=== PATIENT | female | born 1990 | race Caucasian/White ===

== ENCOUNTER 2021-07-26 05:48 | Emergency (ER) | payer MEDICAID ==
[2021-07-26] MEDS ORDERED: KETOROLAC 30 MG/ML VIAL IM STA (06:32)
[2021-07-26] MEDS ORDERED: ORPHENADRINE 60 MG/2 ML (NORFLEX) AMP (ED ONLY) IM STA (06:32)
--- NOTE | 2021-07-26 06:36 | ED Abdominal Pain ---
General Chief Complaint: Abdominal/GI Problems Stated Complaint: LEFT SIDE & VAG CRAMPING,SPOTTING Nursing Triage Note: TO ED VIA POV AND AMBULATORY TO ROOM 6 WITH C/O LEFT LOWER PELVIC PAIN THAT RADIATES TO BACK THAT STARTED APPROX 0300 THIS MORNING. STATES, "DOESN'T FEEL LIKE A UTI". PT STATES, "IT FEELS LIKE MENSTRUAL CRAMPING WHEN I URINATE". 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 Source of Information: Patient Exam Limitations: No Limitations History of Present Illness Date Seen by Provider: July 26, 2021 Time Seen by Provider: 06:25 Initial Comments Patient is a 31-year-old female who presents to the emergency department today with a chief complaint of left lower quadrant abdominal cramping, headache and neck pain. Patient symptoms started last evening. She took some Excedrin Migraine and rizatriptan for her headache without relief of symptoms. No associated fevers, chills, earache. She feels like her throat is a little sore but it does not hurt to swallow. History of significant seasonal allergies. She states that she had "brown" vaginal discharge around 3:00 in the morning that concerned her. She has not had a menstrual cycle since mid May. She has a history of PCOS. Had normal menses from December to May after stopping oral control pills. Previous cholecystectomy and section. Last bowel movement was early this morning. Nonblack nonbloody. She is not nauseous. All other review of systems reviewed and negative except as stated. Timing/Duration: 12-24 Hours Severity/Quality: Moderate, Cramping Location: Q Activities at Onset: Sleeping Associated Symptoms: Back Pain (left flank), Headache Allergies and Home Medications Allergies Coded Allergies: Penicillins (Verified Allergy, Unknown, 07/26/21) Patient Home Medication List Home Medication List Reviewed: Yes Review of Systems Review of Systems Constitutional: see HPI EENTM: No Symptoms Reported Respiratory: No Symptoms Reported Cardiovascular: No Symptoms Reported Gastrointestinal: Abdominal Pain Genitourinary: Discharge ("brown") Musculoskeletal: neck pain Skin: no symptoms reported Psychiatric/Neurological: Headache All Other Systems Reviewed Negative Unless Noted: Yes Past Arrtyzk-Nazfca-Eumuor Hx Patient Social History Tobacco Use?: Yes Tobacco type used: Cigarettes Smoking Status: Current Everyday Smoker Substance use?: No Alcohol Use?: No Immunizations Up To Date Influenza Vaccine Up-to-Date: No; Not Current Past Medical History Last Menstrual Period: Jun 10, 2021 Physical Exam Vital Signs Vital Signs - First Documented 07/26/21 06:13 Temp 36.9 Pulse 117 Resp 16 B/P (MAP) 125/84 (98) Pulse Ox 100 O2 Delivery Room Air Capillary Refill : Less Than 3 Seconds Height/Weight/BMI Height: '" Weight: lbs. oz. kg; BMI Method: General Appearance: WD/WN, no apparent distress HEENT: PERRL/EOMI, TMs normal, pharynx normal Neck: non-tender, full range of motion, supple, normal inspection Respiratory: lungs clear, normal breath sounds, no respiratory distress, no accessory muscle use Cardiovascular: regular rate, rhythm Gastrointestinal: normal bowel sounds, non tender, soft Extremities: normal range of motion, normal inspection Neurologic/Psychiatric: no motor/sensory deficits, alert, normal mood/affect, oriented x 3 Skin: normal color, warm/dry Progress/Results/Core Measures Results/Orders Lab Results Laboratory Tests Test 07/26/21 06:20 07/26/21 06:46 Range/Units Urine Color YELLOW Urine Clarity CLEAR Urine pH 5.5 5-9 Urine Specific [place] 1.010 L 1.016-1.022 Urine Protein NEGATIVE NEGATIVE Urine Glucose (UA) NEGATIVE NEGATIVE Urine Ketones NEGATIVE NEGATIVE Urine Nitrite NEGATIVE NEGATIVE Urine Bilirubin NEGATIVE NEGATIVE Urine Urobilinogen 0.2 < = 1.0 MG/DL Urine Leukocyte Esterase NEGATIVE NEGATIVE Urine RBC (Auto) 2+ H NEGATIVE Urine RBC RARE /HPF Urine WBC 0-2 /HPF Urine Squamous Epithelial Cells 2-5 /HPF Urine Crystals NONE /LPF Urine Bacteria TRACE /HPF Urine Casts NONE /LPF Urine Mucus NEGATIVE /LPF Urine Culture Indicated NO Serum Test, Qualitative NEGATIVE NEGATIVE My Orders Orders - BETINA SOTO MD Hcg,Qualitative Serum (07/26/21 06:32) Ua Culture If Indicated (07/26/21 06:32) Urine Bedside (07/26/21 06:32) Ketorolac Injection (Toradol Injection) (07/26/21 06:32) Orphenadrine Inj (Ed Only) (Norflex Inje (07/26/21 06:32) Vital Signs/I&O 07/26/21 06:13 Temp 36.9 Pulse 117 Resp 16 B/P (MAP) 125/84 (98) Pulse Ox 100 O2 Delivery Room Air Blood Pressure Mean: 98 Progress Progress Note : Time: 07:07 Progress Note Patient is feeling much better after medications. Urinalysis shows trace blood, likely due to onset of menstruation. Her serum test is negative. We talked about return precautions, cannot rule out a kidney stone with the work-up done today so if she has worsening pain, nausea vomiting she needs to come back to the emergency room. She is comfortable with this plan of care. All questions are sought and answered. Patient is stable for discharge Departure Impression Primary Impression: Headache Qualified Codes: G44.209 - Tension-type headache, unspecified, not intractable Additional Impression: Abdominal pain Qualified Codes: R10.32 - Left lower quadrant pain Disposition: 01 HOME, SELF-CARE Condition: Improved Departure-Patient Inst. Decision time for Depature: 07:08 Referrals: NO,LOCAL PHYSICIAN (PCP/Family) Primary Care Physician Patient Instructions: Abdominal Pain, Adult ED Add. Discharge Instructions: Drink plenty of fluids to stay well-hydrated. You can take jzuy-jrh-bonccjd ibuprofen 3 tablets which is 600 mg every 6 hours with food as needed for pain. If you have worsening abdominal pain especially with nausea, vomiting or fever please return to the emergency department for reevaluation. Please follow-up with your primary care physician. BETINA SOTO MD July 26, 2021 06:36
[2021-07-26 06:37] LABS: BILIRUBIN,URINE NEGATIVE (NEGATIVE); CLARITY,URINE CLEAR; COLOR,URINE YELLOW; GLUCOSE, URINE (UA) NEGATIVE (NEGATIVE); KETONES,URINE NEGATIVE (NEGATIVE); LEUKOCYTE ESTERASE ,URINE NEGATIVE (NEGATIVE); NITRITE,URINE NEGATIVE (NEGATIVE); PH,URINE 5.5 (5-9); PROTEIN,URINE NEGATIVE (NEGATIVE)
[2021-07-26 06:58] LABS: BACTERIA,URINE TRACE /HPF; RBC,URINE RARE /HPF; WBC,URINE 0-2 /HPF
[2021-07-26 07:29] VITALS: BP 120/81
== END 2021-07-26 07:29 | disposition home or self-care (01) ==
LOC: ER 05:54
DX: R10.32 Left lower quadrant pain (principal); G44.209 Tension-type headache, unspecified, not intractable; F17.210 Nicotine dependence, cigarettes, uncomplicated; Z87.42 Personal history of other diseases of the female genital tract; Z90.49 Acquired absence of other specified parts of digestive tract; Z79.899 Other long term (current) drug therapy; Z32.02 Encounter for pregnancy test, result negative
CPT/HCPCS: 36415; 81000; 84703

== ENCOUNTER 2021-12-22 03:08 | Emergency (ER) | payer MEDICAID ==
[~2021-12-22] VITALS: Ht 152.4 cm; Wt 79.0 kg
--- NOTE | 2021-12-22 03:42 | ED EENT ---
History of Present Illness General Stated Complaint: BOTH EARS PX,DIZZY,DIFFICULTY SWALLOWING Source: patient Exam Limitations: no limitations History of Present Illness Date Seen by Provider: Dec 22, 2021 Time Seen by Provider: 03:20 Initial Comments Patient to the ER by private conveyance chief complaint that for the past 5 days she has been experiencing some pain in her right jaw and her right ear. She says this morning getting worse. She went to the dentist yesterday and was described as having no infection in her teeth or gums. She said the pain got worse tonight woke her up. She says it felt like something was sloshing around in her head and it made her dizzy whenever she would stand up or turn her head. She also felt like something was biting her in her eardrum causing sharp intense pain. She has not taken anything for pain yet. She not having any nausea or vomiting fevers or chills. Allergy to penicillin based off of allergy testing. Allergies and Home Medications Allergies Coded Allergies: Penicillins (Verified Allergy, Unknown, 07/26/21) Patient Home Medication List Home Medication List Reviewed: Yes Cefdinir (Cefdinir) 300 Mg Capsule, 300 MG PO BID Prescribed by: PATRIC PALACIO on 12/22/21 0344 Review of Systems Review of Systems Constitutional: No chills, No fever Eyes: Denies Blindness, Denies Drainage Ears: See HPI; Denies Dizziness; Pain Nose: denies clots, denies pain Mouth: denies clots, denies swelling, denies bloody discharge Respiratory: No cough, No short of breath Gastrointestinal: No nausea, No vomiting All Other Systems Reviewed Negative Unless Noted: Yes Past Sbbmpdu-Dveget-Oetiri Hx Patient Social History Tobacco Use?: No Use of E-Cig and/or Vaping dev: No Physical Exam Vital Signs Vital Signs - First Documented 12/22/21 03:27 Temp 35.5 Pulse 102 Resp 20 B/P (MAP) 119/88 (98) Pulse Ox 100 O2 Delivery Room Air Height, Weight, BMI Height: '" Weight: lbs. oz. kg; BMI Method: General Appearance: WD/WN, no apparent distress Eyes: bilateral eye normal inspection, bilateral eye PERRL, bilateral eye EOMI Ears: right ear TM dull, right ear TM red; left ear TM normal; bilateral ear auricle normal, bilateral ear canal normal Nose: normal inspection; No active bleeding Mouth/Throat: normal mouth inspection, pharynx normal Cardiovascular: normal peripheral pulses, regular rate, rhythm Respiratory: no respiratory distress, no accessory muscle use Progress/Results/Core Measures Results/Orders My Orders Orders - PATRIC PALACIO Cefdinir Capsule (Omnicef Capsule) (12/22/21 03:45) Medications Given in ED Current Medications Medications Dose Ordered Sig/Clara Route Start Time Stop Time Status Last Admin Dose Admin Cefdinir 300 mg ONCE ONCE PO 12/22/21 03:45 12/22/21 03:46 DC 12/22/21 04:01 300 MG Vital Signs/I&O 12/22/21 12/22/21 03:27 04:01 Temp 35.5 35.5 Pulse 102 102 Resp 20 20 B/P (MAP) 119/88 (98) 119/88 Pulse Ox 100 100 O2 Delivery Room Air Room Air Progress Progress Note : Time: 03:38 Progress Note First dose of cefdinir and give her prescription for Antivert. Put her on fluticasone and cefdinir outpatient with return precautions. Patient is okay with this plan. She will get some gqzv-qbw-fhgcebg pain medicine when she gets home. Departure Impression Primary Impression: Otitis media of right ear Qualified Codes: H65.191 - Other acute nonsuppurative otitis media, right ear Disposition: HOME, SELF-CARE Condition: Stable Departure-Patient Inst. Decision time for Depature: 03:39 Referrals: NO,LOCAL PHYSICIAN (PCP/Family) Primary Care Physician Patient Instructions: Ear Infections (Otitis Media) in Adults (DC) Add. Discharge Instructions: Cefdinir twice a day with food. Yogurt with active culture or probiotics twice a day to prevent diarrhea from antibiotics. Drink lots of fluids. Tylenol 1000 mg every 8 hours needed for pain. Ibuprofen 800 mg every 8 hours needed for pain. Scripts Cefdinir (Cefdinir) 300 Mg Capsule 300 MG PO BID for 10 Days, #20 CAP 0 Refills Prov: PATRIC PALACIO 12/22/21 Work/School Note: Work Release Form Date Seen in the Emergency Department: Dec 22, 2021 Return to Work: Dec 24, 2021 Restrictions: No Restrictions PATRIC PALACIO Dec 22, 2021 03:42
[2021-12-22] MEDS ORDERED: CEFD300C3 PO (03:44)
[2021-12-22] MEDS ORDERED: CEFDINIR 300 MG (OMNICEF) CAP PO ONE (03:45)
[2021-12-22 04:01] VITALS: BP 119/88
[2021-12-22] MEDS ORDERED: IBUPROFEN 800 MG (MOTRIN) TAB PO ONE ×2 (04:06→04:15)
== END 2021-12-22 04:02 | disposition home or self-care (01) ==
LOC: EDUNIT# 03:08 → ER 03:12
DX: H66.91 Otitis media, unspecified, right ear (principal)
CPT/HCPCS: 99283

== ENCOUNTER 2022-01-31 14:50 | Emergency (ER) | payer MEDICAID ==
[~2022-01-31] VITALS: Ht 152.4 cm; Wt 79.5 kg
[~2022-01-31 14:50] MED LIST: CEFD300C3 PO
[2022-01-31] MEDS ORDERED: ONDANSETRON 4 MG/2 ML (SDV) Z0FRAN IVP ONE (15:30)
[2022-01-31] MEDS ORDERED: LACTATED RINGERS 1,000 ML IV ONE (15:30)
[2022-01-31] MEDS ORDERED: fentaNYL INJ 100 MCG/2 ML AMP IVP ONE (15:30)
[2022-01-31 15:37] LABS: BASOPHILS % (AUTO) 0 % (0-10); EOSINOPHILS % (AUTO) 0 % (0-10); HEMATOCRIT 43 % (35-52); HEMOGLOBIN 14.2 g/dL (11.5-16.0); LYMPHOCYTES # (AUTO) 3.8 10^3/uL (1.0-4.0); LYMPHOCYTES % (AUTO) 30 % (12-44); MEAN CORPUSCULAR HEMOGLOBIN 29 pg (25-34); MEAN CORPUSCULAR HGB CONC 33 g/dL (32-36); MEAN CORPUSCULAR VOLUME 89 fL (80-99); MEAN PLATELET VOLUME 9.9 fL (9.0-12.2); MONOCYTES # (AUTO) 0.4 10^3/uL (0.0-1.0); MONOCYTES % (AUTO) 3 % (0-12); NEUTROPHILS # (AUTO) 8.6 10^3/uL (1.8-7.8); NEUTROPHILS % (AUTO) 67 % (42-75); PLATELET COUNT 297 10^3/uL (130-400)
[2022-01-31 15:45] LABS: ALBUMIN 4.2 GM/DL (3.2-4.5)
[2022-01-31 15:47] LABS: CALCIUM 9.8 MG/DL (8.5-10.1)
[2022-01-31 15:50] LABS: BILIRUBIN,TOTAL 0.5 MG/DL (0.1-1.0)
[2022-01-31 15:52] LABS: CREATININE SERUM 0.76 MG/DL (0.60-1.30)
[2022-01-31 15:55] LABS: ERYTHROCYTE SEDIMENTATION RATE 9 MM/HR (0-20); MAGNESIUM 1.9 MG/DL (1.6-2.4)
[2022-01-31 16:15] LABS: TSH (THYROID ANALYZER) 2.56 UIU/ML (0.35-4.94)
--- NOTE | 2022-01-31 16:32 | Diagnostic Imaging Report ---
INDICATION: Severe headache, recent lumbar puncture. TECHNIQUE: Multiple contiguous axial images were obtained through the brain without the use of intravenous contrast. Auto Exposure Controls were utilized during the CT exam to meet ALARA standards for radiation dose reduction. COMPARISON: There is no prior study for comparison. FINDINGS: There were no extra-axial fluid collections. No intracranial hemorrhage. No intracranial mass or mass effect. No midline shift. The ventricles are normal in size and position. There were no focal parenchymal abnormalities in the brain. Visualized portions of the orbits and sinuses appear unremarkable, except for a small retention cyst or polyp in the right maxillary sinus inferiorly. Mastoid air cells appear well aerated. IMPRESSION: No acute intracranial abnormality. Dictated by: Dictated on workstation # [id number]
[2022-01-31] MEDS ORDERED: KETOROLAC 30 MG/ML VIAL IVP ONE (16:45)
--- NOTE | 2022-01-31 16:45 | ED Headache ---
General Chief Complaint: Head/Cervical Problems Stated Complaint: HEADACHES | NUMBNESS AND PAIN Nursing Triage Note: pt states her dr sent her here to see make sure she isnt having a stroke. she states she has headache,fullness in head, tingling in right arm, pressure in right eye, feeling of her ears needing to pop. states that she had an LP yesterday at Source: patient Exam Limitations: no limitations (LOC NORWOOD MD) History of Present Illness Date Seen by Provider: Jan 31, 2022 Time Seen by Provider: 15:04 Initial Comments This 31-year-old woman presents to the emergency room with primary complaint of intense occipital headache. She has been undergoing neurologic work-up with Dr. Moore, neurologist at [facility] for a myriad of neurologic symptoms. Yesterday she underwent a trial of therapeutic LP. Opening pressure was reportedly 26 cmH2O. The cytology was unremarkable. Patient reports feeling significantly improved after the LP but approximately 1 hour prior to arrival developed neurologic symptoms again. Her primary symptom is occipital headache but she also complains of a hot and cold sensation down both legs, some mild tremors, a "underwater sound" in her background hearing, light sensitivity, sensation of racing heart and pressure in the chest, paresthesias in the arms, neck stiffne ss, and worsening of headache when in the upright position. Most of these symptoms are actually recurrent and not new today. The sensation of twitching and the "underwater sound" are new today. Patient reports speaking with Dr. Oscar Moore's nurse, who instructed her to come to the emergency room to rule out any more serious pathology. Patient took tizanidine, methylprednisolone, metformin, and gabapentin. She has not taken any other acute treatment medications. She states her vision has at times been blurred and she sometimes sees "dhaliwal". Of note, I later spoke with Dr. Moore who reports a myriad of neurologic symptoms is not new for the patient. Acute severity of symptoms and intense headache is likely secondary to spinal headache especially with it worsening in the upright position. (LOC NORWOOD MD) Initial Comments Agree with H & P (TERRI MONTOYA MD) Allergies and Home Medications Allergies Coded Allergies: Penicillins (Verified Allergy, Unknown, 07/26/21) Patient Home Medication List Home Medication List Reviewed: Yes (LOC NORWOOD MD) Home Medication List Reviewed: Yes (TERRI MONTOYA MD) Cefdinir (Cefdinir) 300 Mg Capsule, 300 MG PO BID Prescribed by: PATRIC PALACIO on 12/22/21 0344 Review of Systems Review of Systems Constitutional: no symptoms reported Eyes: See HPI Ears, Nose, Mouth, Throat: see HPI Respiratory: see HPI Cardiovascular: see HPI Gastrointestinal: see HPI, nausea Genitourinary: no symptoms reported : No Musculoskeletal: see HPI Skin: no symptoms reported Psychiatric/Neurological: See HPI (LOC NORWOOD MD) Past Oidcwkb-Pmmnpx-Thyyts Hx Patient Social History Tobacco Use?: Yes Tobacco type used: Cigarettes Substance use?: No Alcohol Use?: No (LOC NORWOOD MD) Seasonal Allergies Seasonal Allergies: Yes (LOC NORWOOD MD) Past Medical History Surgery/Hospitalization HX: ptsd, cervical migranes, cervical vertigo, anxiety, panic attacks x2, choley Surgeries: Yes (Leonardo teeth) Section, Gallbladder Respiratory: Yes COPD Cardiac: No Neurological: Yes Headaches /Migraines, Vertigo : No Reproductive Disorders: Yes Female Reproductive Disorders: Polycystic Ovarian Dis Genitourinary: No Gastrointestinal: No Musculoskeletal: No Endocrine: No HEENT: No Cancer: No Psychosocial: Yes Anxiety, PTSD, Bipolar (LOC NORWOOD MD) Physical Exam Vital Signs Vital Signs - First Documented 01/31/22 01/31/22 14:56 15:52 Temp 36.2 Pulse 91 Resp 18 B/P (MAP) 141/94 (110) Pulse Ox 99 O2 Delivery Room Air (TERRI MONTOYA MD) Vital Signs Capillary Refill : (LOC NORWOOD MD) Height, Weight, BMI Height: '" Weight: lbs. oz. kg; 34.00 BMI Method: General Appearance: WD/WN, mild distress HEENT: PERRL/EOMI, normal ENT inspection, TMs normal, pharynx normal Neck: normal inspection Cardiovascular: regular rate, rhythm, no edema, no murmur Respiratory: lungs clear, normal breath sounds, no respiratory distress Gastrointestinal: normal bowel sounds, non tender, soft Back: other (Mild bruising at the LP site) Extremities: non-tender, normal inspection, no pedal edema Psychiatric: alert, oriented x 3 Crainal Nerves: normal hearing, normal speech, PERRL Coordination/Gait: normal finger to nose Motor/Sensory: no motor deficit, no sensory deficit, no pronator drift, other (Sensation is intact bilaterally but patient says the sensation of touch is more intense on the right than the left.) Skin: normal color, warm/dry (LOC NORWOOD MD) Progress/Results/Core Measures Results/Orders Lab Results Laboratory Tests Test 01/31/22 15:30 Range/Units White Blood Count 13.0 H 4.3-11.0 10^3/uL Red Blood Count 4.89 3.80-5.11 10^6/uL Hemoglobin 14.2 11.5-16.0 g/dL Hematocrit 43 35-52 % Mean Corpuscular Volume 89 80-99 fL Mean Corpuscular Hemoglobin 29 25-34 pg Mean Corpuscular Hemoglobin Concent 33 32-36 g/dL Red Cell Distribution Width 13.8 10.0-14.5 % Platelet Count 297 130-400 10^3/uL Mean Platelet Volume 9.9 9.0-12.2 fL Immature Granulocyte % (Auto) 0 % Neutrophils (%) (Auto) 67 42-75 % Lymphocytes (%) (Auto) 30 12-44 % Monocytes (%) (Auto) 3 0-12 % Eosinophils (%) (Auto) 0 0-10 % Basophils (%) (Auto) 0 0-10 % Neutrophils # (Auto) 8.6 H 1.8-7.8 10^3/uL Lymphocytes # (Auto) 3.8 1.0-4.0 10^3/uL Monocytes # (Auto) 0.4 0.0-1.0 10^3/uL Eosinophils # (Auto) 0.0 0.0-0.3 10^3/uL Basophils # (Auto) 0.0 0.0-0.1 10^3/uL Immature Granulocyte # (Auto) 0.0 0.0-0.1 10^3/uL Erythrocyte Sedimentation Rate 9 0-20 MM/HR Sodium Level 138 135-145 MMOL/L Potassium Level 4.0 3.6-5.0 MMOL/L Chloride Level 103 98-107 MMOL/L Carbon Dioxide Level 27 21-32 MMOL/L Anion Gap 8 5-14 MMOL/L Blood Urea Nitrogen 10 7-18 MG/DL Creatinine 0.76 0.60-1.30 MG/DL Estimat Glomerular Filtration Rate 106 BUN/Creatinine Ratio 13 Glucose Level 89 70-105 MG/DL Calcium Level 9.8 8.5-10.1 MG/DL Corrected Calcium 9.6 8.5-10.1 MG/DL Magnesium Level 1.9 1.6-2.4 MG/DL Total Bilirubin 0.5 0.1-1.0 MG/DL Aspartate Amino Transf (AST/SGOT) 22 5-34 U/L Alanine Aminotransferase (ALT/SGPT) 51 0-55 U/L Alkaline Phosphatase 96 40-136 U/L C-Reactive Protein High Sensitivity 0.33 0.00-0.50 MG/DL Total Protein 7.0 6.4-8.2 GM/DL Albumin 4.2 3.2-4.5 GM/DL TSH Alba Testing 2.56 0.35-4.94 UIU/ML Serum Test, Qualitative NEGATIVE NEGATIVE (TERRI MONTOYA MD) Medications Given in ED Current Medications Medications Dose Ordered Sig/Clara Route Start Time Stop Time Status Last Admin Dose Admin Fentanyl Citrate 50 mcg ONCE ONCE IVP 01/31/22 15:30 01/31/22 15:31 DC 01/31/22 15:39 50 MCG Ketorolac Tromethamine 30 mg ONCE ONCE IVP 01/31/22 16:45 01/31/22 16:47 DC 01/31/22 16:50 30 MG Lactated Ringer's 1,000 ml @ 0 mls/hr Q0M ONCE IV 01/31/22 15:30 01/31/22 15:31 DC 01/31/22 15:36 0 MLS/HR Ondansetron HCl 8 mg ONCE ONCE IVP 01/31/22 15:30 01/31/22 15:31 DC 01/31/22 15:36 8 MG (TERRI MONTOYA MD) Vital Signs/I&O 01/31/22 01/31/22 01/31/22 01/31/22 14:56 15:52 16:27 17:31 Temp 36.2 Pulse 91 61 65 75 Resp 18 18 18 18 B/P (MAP) 141/94 (110) 111/79 (90) 126/97 (107) 132/93 (106) Pulse Ox 99 97 96 100 O2 Delivery Room Air Room Air Room Air 01/31/22 01/31/22 17:55 18:48 Pulse 67 65 Resp 18 18 B/P (MAP) 132/93 (106) 119/78 (92) Pulse Ox 98 97 O2 Delivery Room Air Room Air (TERRI MONTOYA MD) Blood Pressure Mean: 107 Progress Progress Note : Time: 17:52 Progress Note Patient was hydrated with a liter of LR and was treated with Zofran and fentanyl. She had notable improvement after treatment. She was treated with Toradol for residual headache and LP site pain. Other symptoms resolved including the discomfort in her chest. I discussed the case with Dr. Moore who believes spinal headache is likely and recommended blood patch. Anesthesia has been consulted and will come visit with the patient. Care of this patient is being transitioned to Dr. Montoya at this time. 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 Pt feels better after monitoring post procedure. Will discharge. Advised to follow up with PCP and Neurologist within 3 to 5 days. - The patient was seen in the ED, and treated appropriately to presentation at a specific point in time. Patient is informed that there is a possibility that disease and illness can evolve and change in acuity rapidly or slowly after patient is discharged from the ER. Precautionary advice given to the patient for immediate return to ER if symptoms worsen or do not resolve, and to seek emergency care sooner rather than later. Pt also advised on the importance of PCP follow up and compliance with management and follow up plan with PCP and/or specialist, as this is part of the management plan. Pt verbally expressed understanding. (TERRI MONTOYA MD) Diagnostic Imaging Diagonstic Imaging: CT Plain Films/CT/US/NM/MRI: head Comments NAME: MAEVE CLARKE Mariana MED REC#: [id number] PT STATUS: REG ER : 1990 PHYSICIAN: LOC NORWOOD MD ADMIT DATE: 01/31/22/ER Signed Date of Exam:01/31/22 CT HEAD WO INDICATION: Severe headache, recent lumbar puncture. TECHNIQUE: Multiple contiguous axial images were obtained through the brain without the use of intravenous contrast. Auto Exposure Controls were utilized during the CT exam to meet ALARA standards for radiation dose reduction. COMPARISON: There is no prior study for comparison. FINDINGS: There were no extra-axial fluid collections. No intracranial hemorrhage. No intracranial mass or mass effect. No midline shift. The ventricles are normal in size and position. There were no focal parenchymal abnormalities in the brain. Visualized portions of the orbits and sinuses appear unremarkable, except for a small retention cyst or polyp in the right maxillary sinus inferiorly. Mastoid air cells appear well aerated. IMPRESSION: No acute intracranial abnormality. Dictated by: Dictated on workstation # [id number] Dict: 01/31/22 1615 Trans: 01/31/221655 AS6 [id number] Interpreted by: JERE SLADE MD Electronically signed by: JERE SLADE MD 01/31/221655 (LOC NORWOOD MD) Departure Impression Primary Impression: Post lumbar puncture headache Disposition: 01 HOME, SELF-CARE Condition: Improved Departure-Patient Inst. Referrals: NO,LOCAL PHYSICIAN (PCP/Family) Primary Care Physician Patient Instructions: Epidural Blood Patch Add. Discharge Instructions: Advised to follow up with PCP and Neurologist within 3 to 5 days All discharge instructions reviewed with patient and/or family. Voiced understanding. LOC NORWOOD MD Jan 31, 2022 16:45 TERRI MONTOYA MD Jan 31, 2022 20:17
--- NOTE | 2022-01-31 18:39 | Anesthesia-Procedure Note ---
Procedures/Interventions Procedure Start/Stop/Diagnosis Date of Procedure: Jan 31, 2022 Start Time: 18:15 Referring Physician: Aiden Preprocedural Diagnosis: Consult for PDPH Brief History Pt had undergone lumbar puncture yesterday 01/30/22 @ [facility]. Has reported worsening postural occipital headache, light sensitivity, and neck pain. Dr. Neely has spoken with neurology who believes cause is likely PDPH. Discussed procedure and significant risk with patient, in detail, she wishes to proceed. Brief history and consent obtained, chart reviewed. Stop Time: 18:45 Blood Patch Blood Patch Pt positioned sitting upright on side of ER cart. Betadine swab x 3 to cleanse site. Sterile drape placed. Lidocaine 1% 3mL for skin localization at L4 interspace. 17g Tuohy x 1 attempt with MICHAEL (4mL NS) @ 6.5cm depth. Negative parasthesia or heme noted. Using sterile technique, [facility] [employer] withdrew 20mL of blood from right AC with 21g butterfly x 1 attempt. Blood was injected slowly into epidural space via Tuohy until significant cramping noted by patient, to a total volume of 13mL. Site cleansed/dry/band aid applied. Pt tolerated well with no event. Pt supine on cart following procedure. @1845-Pt reports some reduction of pain and symptoms post procedure. States she cannot tell for certain unless she was sitting upright, but I have encouraged her to remain supine @ this time. Consulted on encouraging PO hydration and caffeinated beverages over these next few days in addition. CHRISTINE CM CRNA Jan 31, 2022 18:39
[2022-01-31 20:26] VITALS: BP 122/84
== END 2022-01-31 20:26 | disposition home or self-care (01) ==
LOC: EDUNIT# 14:50 → ER 14:52
DX: G97.1 Other reaction to spinal and lumbar puncture (principal); F17.290 Nicotine dependence, other tobacco product, uncomplicated
CPT/HCPCS: 36415; 70450; 80053; 83735; 84443; 84703; 85025; 85652; 86141

== ENCOUNTER 2022-05-22 20:08 | Emergency (ER) | payer MEDICAID ==
[2022-05-22] MEDS ORDERED: NS IV 1000 ML 1,000 ML IV STA (20:50)
[2022-05-22 20:58] LABS: BILIRUBIN,URINE NEGATIVE (NEGATIVE); CLARITY,URINE CLEAR; COLOR,URINE YELLOW; GLUCOSE, URINE (UA) NEGATIVE (NEGATIVE); KETONES,URINE NEGATIVE (NEGATIVE); LEUKOCYTE ESTERASE ,URINE NEGATIVE (NEGATIVE); NITRITE,URINE NEGATIVE (NEGATIVE); PH,URINE 7.5 (5-9); PROTEIN,URINE NEGATIVE (NEGATIVE)
[2022-05-22 21:03] LABS: BASOPHILS # (AUTO) 0.1 10^3/uL (0.0-0.1); BASOPHILS % (AUTO) 0 % (0-10); EOSINOPHILS # (AUTO) 0.1 10^3/uL (0.0-0.3); EOSINOPHILS % (AUTO) 1 % (0-10); HEMATOCRIT 43 % (35-52); HEMOGLOBIN 14.1 g/dL (11.5-16.0); LYMPHOCYTES # (AUTO) 4.6 10^3/uL (1.0-4.0); LYMPHOCYTES % (AUTO) 39 % (12-44); MEAN CORPUSCULAR HEMOGLOBIN 29 pg (25-34); MEAN CORPUSCULAR HGB CONC 33 g/dL (32-36); MEAN CORPUSCULAR VOLUME 89 fL (80-99); MONOCYTES # (AUTO) 0.5 10^3/uL (0.0-1.0); MONOCYTES % (AUTO) 4 % (0-12); NEUTROPHILS # (AUTO) 6.5 10^3/uL (1.8-7.8); NEUTROPHILS % (AUTO) 55 % (42-75); PLATELET COUNT 325 10^3/uL (130-400); WHITE BLOOD COUNT 11.8 10^3/uL (4.3-11.0)
[2022-05-22 21:14] LABS: BACTERIA,URINE FEW /HPF; WBC,URINE 0-2 /HPF
[2022-05-22 21:24] LABS: ALBUMIN 4.5 GM/DL (3.2-4.5); BILIRUBIN,TOTAL 0.4 MG/DL (0.1-1.0); CALCIUM 10.2 MG/DL (8.5-10.1); CREATININE SERUM 0.77 MG/DL (0.60-1.30); POTASSIUM 3.6 MMOL/L (3.6-5.0); TOTAL PROTEIN 7.4 GM/DL (6.4-8.2)
--- NOTE | 2022-05-22 22:25 | ED General ---
General Chief Complaint: General Problems/Pain Stated Complaint: FATIGUE/DIZZY/WEAKNESS Nursing Triage Note: TO ED VIA POV AND AMBULATORY TO FT2 WITH C/O SEVERAL DAYS OF BEING EXHAUSTED AND STRESSED. Source of Information: Patient Exam Limitations: No Limitations History of Present Illness Date Seen by Provider: May 22, 2022 Time Seen by Provider: 22:24 Initial Comments Patient is a 32-year-old female presents ED with fatigue, dizziness and weakness. She states she has been feeling this way over for the past 2 days. She states she feels dehydrated and not drinking as much fluids. She states she is having dizziness while walking. Denies the room spinning. She states over the past 4 to 5 days she has had increased stress and anxiety. she reports increased stressors over the past 4 to 5 days. She reports because of personal life stress. Sleeping about 3 to 4 hours per night for the past 4 to 5 days. Difficulty staying asleep. She denies of any vomiting, diarrhea, cough, chest pain, headache, visual changes, sore throat, fever. She denies of any urinary symptoms. She is requesting IV fluids secondary to the dehydration. Denies history of thyroid disease. Last menstrual cycle 3 weeks ago Allergies and Home Medications Allergies Coded Allergies: Penicillins (Verified Allergy, Unknown, 07/26/21) Patient Home Medication List Home Medication List Reviewed: Yes Cefdinir (Cefdinir) 300 Mg Capsule, 300 MG PO BID Prescribed by: PATRIC PALACIO on 12/22/21 0344 Review of Systems Review of Systems Constitutional: No chills; dizziness; No fever; malaise, weakness EENTM: No ear pain, No blurred vision, No double vision, No mouth pain, No nose pain, No throat pain Respiratory: No cough, No short of breath Cardiovascular: No chest pain Gastrointestinal: No abdominal pain, No diarrhea, No nausea, No vomiting Genitourinary: No decreased output, No discharge, No dysuria, No frequency Musculoskeletal: No back pain, No joint pain Skin: No change in color, No change in hair/nails All Other Systems Reviewed Negative Unless Noted: Yes Past Wjwqlpx-Mkbudr-Rrfibe Hx Patient Social History Tobacco Use?: Yes Tobacco type used: Cigarettes Substance use?: No Alcohol Use?: No Immunizations Up To Date Influenza Vaccine Up-to-Date: Yes; Up-to-Date Seasonal Allergies Seasonal Allergies: Yes Past Medical History Surgery/Hospitalization HX: ptsd, cervical migranes, cervical vertigo, anxiety, panic attacks x2, choley Surgeries: Yes ([place] teeth) Section, Gallbladder Respiratory: Yes COPD Cardiac: No Neurological: Yes Headaches /Migraines, Vertigo Reproductive Disorders: Yes Female Reproductive Disorders: Polycystic Ovarian Dis Genitourinary: No Gastrointestinal: No Musculoskeletal: No Endocrine: No HEENT: No Cancer: No Psychosocial: Yes Anxiety, PTSD, Bipolar Physical Exam Vital Signs Vital Signs - First Documented Capillary Refill : Less Than 3 Seconds Height, Weight, BMI Height: '" Weight: lbs. oz. kg; 34.00 BMI Method: General Appearance: No Apparent Distress, WD/WN Eyes: Bilateral Eye Normal Inspection, Bilateral Eye PERRL, Bilateral Eye EOMI HEENT: PERRL/EOMI, TMs Normal, Normal ENT Inspection, Pharynx Normal Neck: Full Range of Motion, Normal Inspection, Non Tender, Supple Respiratory: Chest Non Tender, Lungs Clear, Normal Breath Sounds, No Accessory Muscle Use, No Respiratory Distress Cardiovascular: Regular Rate, Rhythm, No Edema, No Gallop, No JVD, No Murmur Gastrointestinal: Normal Bowel Sounds, No Organomegaly, No Pulsatile Mass Rectal: Normal Exam Extremity: Normal Capillary Refill, Normal Inspection, Normal Range of Motion, Non Tender Neurologic/Psychiatric: Alert, Oriented x3, No Motor/Sensory Deficits, Normal Mood/Affect Skin: Normal Color, Warm/Dry Progress/Results/Core Measures Suspected Sepsis SIRS Temperature: Pulse: 89 Respiratory Rate: 16 Laboratory Tests 05/22/22 20:57: White Blood Count 11.8H Blood Pressure 111 /78 Mean: 89 Laboratory Tests 05/22/22 20:57: Creatinine 0.77, Platelet Count 325, Total Bilirubin 0.4 Results/Orders Lab Results Laboratory Tests Test 05/22/22 20:51 05/22/22 20:57 Range/Units Urine Color YELLOW Urine Clarity CLEAR Urine pH 7.5 5-9 Urine Specific [place] 1.010 L 1.016-1.022 Urine Protein NEGATIVE NEGATIVE Urine Glucose (UA) NEGATIVE NEGATIVE Urine Ketones NEGATIVE NEGATIVE Urine Nitrite NEGATIVE NEGATIVE Urine Bilirubin NEGATIVE NEGATIVE Urine Urobilinogen 0.2 < = 1.0 MG/DL Urine Leukocyte Esterase NEGATIVE NEGATIVE Urine RBC (Auto) NEGATIVE NEGATIVE Urine RBC NONE /HPF Urine WBC 0-2 /HPF Urine Squamous Epithelial Cells 10-25 H /HPF Urine Crystals NONE /LPF Urine Bacteria FEW H /HPF Urine Casts NONE /LPF Urine Mucus NEGATIVE /LPF Urine Culture Indicated NO Urine Test NEGATIVE NEGATIVE White Blood Count 11.8 H 4.3-11.0 10^3/uL Red Blood Count 4.81 3.80-5.11 10^6/uL Hemoglobin 14.1 11.5-16.0 g/dL Hematocrit 43 35-52 % Mean Corpuscular Volume 89 80-99 fL Mean Corpuscular Hemoglobin 29 25-34 pg Mean Corpuscular Hemoglobin Concent 33 32-36 g/dL Red Cell Distribution Width 13.4 10.0-14.5 % Platelet Count 325 130-400 10^3/uL Mean Platelet Volume 10.0 9.0-12.2 fL Immature Granulocyte % (Auto) 0 % Neutrophils (%) (Auto) 55 42-75 % Lymphocytes (%) (Auto) 39 12-44 % Monocytes (%) (Auto) 4 0-12 % Eosinophils (%) (Auto) 1 0-10 % Basophils (%) (Auto) 0 0-10 % Neutrophils # (Auto) 6.5 1.8-7.8 10^3/uL Lymphocytes # (Auto) 4.6 H 1.0-4.0 10^3/uL Monocytes # (Auto) 0.5 0.0-1.0 10^3/uL Eosinophils # (Auto) 0.1 0.0-0.3 10^3/uL Basophils # (Auto) 0.1 0.0-0.1 10^3/uL Immature Granulocyte # (Auto) 0.0 0.0-0.1 10^3/uL Sodium Level 140 135-145 MMOL/L Potassium Level 3.6 3.6-5.0 MMOL/L Chloride Level 104 98-107 MMOL/L Carbon Dioxide Level 25 21-32 MMOL/L Anion Gap 11 5-14 MMOL/L Blood Urea Nitrogen 11 7-18 MG/DL Creatinine 0.77 0.60-1.30 MG/DL Estimat Glomerular Filtration Rate 104 BUN/Creatinine Ratio 14 Glucose Level 78 70-105 MG/DL Calcium Level 10.2 H 8.5-10.1 MG/DL Corrected Calcium 9.8 8.5-10.1 MG/DL Total Bilirubin 0.4 0.1-1.0 MG/DL Aspartate Amino Transf (AST/SGOT) 28 5-34 U/L Alanine Aminotransferase (ALT/SGPT) 31 0-55 U/L Alkaline Phosphatase 86 40-136 U/L Total Protein 7.4 6.4-8.2 GM/DL Albumin 4.5 3.2-4.5 GM/DL My Orders Orders - MICHELLE DEL TORO Urinalysis (05/22/22 20:44) Hcg,Qualitative Urine (05/22/22 20:44) Cbc With Automated Diff (05/22/22 20:50) Comprehensive Metabolic Panel (05/22/22 20:50) Ns Iv 1000 Ml (Sodium Chloride 0.9%) (05/22/22 20:50) Vital Signs/I&O 05/22/22 05/22/22 05/22/22 20:34 20:34 22:32 Temp 36.1 Pulse 89 90 Resp 16 16 B/P (MAP) 111/78 (89) 120/78 Pulse Ox 100 100 O2 Delivery Room Air Room Air Room Air Capillary Refill : Less Than 3 Seconds Blood Pressure Mean: 89 Departure Communication (PCP) Reviewed previous ER visits, test, H&P's before today's visit. Patient with fatigue, weakness over the past 2 days. Decreased sleep over the past 4 to 5 days. I believe patient's symptoms are contributed to her sleep and personal stressors. She agrees. Due to the current symptoms of fatigue, weakness i ordered general lab work was ordered with CBC, CMP and urinalysis. Patient CBC and CMP were unremarkable. Urinalysis was negative for infection or . Was given a liter of fluid. She states she feels much better after the fluid. Patient was requesting of alternative meals to help with protein as she does not like eating meat. Discussed shakes that contain fruit as she likes to eat fruits with protein powder. Discussed eating lean proteins. Avoid fatty foods but recommend continue eating forms of carbs to help with energy levels. Discussed outpatient resources for dietary. Discussed better sleep habits. Return precaution were discussed with patient. Impression Primary Impression: Weakness Disposition: HOME, SELF-CARE Condition: Stable Departure-Patient Inst. Decision time for Depature: 22:24 Referrals: [facility] [place] NO,LOCAL PHYSICIAN (PCP) Primary Care Physician Patient Instructions: Fatigue ED Work/School Note: Work Release Form Date Seen in the Emergency Department: May 22, 2022 Return to Work: May 25, 2022 MICHELLE DEL TORO May 22, 2022 22:25
[2022-05-22 22:32] VITALS: BP 120/78
== END 2022-05-22 22:32 | disposition home or self-care (01) ==
LOC: EDUNIT# 20:08 → ER 20:11
DX: R53.83 Other fatigue (principal); R53.1 Weakness; F17.210 Nicotine dependence, cigarettes, uncomplicated
CPT/HCPCS: 36415; 80053; 81000; 84703; 85025; 99282